=== PATIENT | male | born 1940 | race Caucasian/White ===

== ENCOUNTER 2024-04-29 20:39 | Emergency (ER) | payer MEDICARE ==
[~2024-04-29 20:39] MED LIST: Iopamidol 370 76% 100 ML VIAL ONE
[2024-04-29 21:06] LABS: #Lymphocytes 0.9 thou/uL (1.20-3.40); #Monocytes 0.1 thou/uL (0.11-0.59); #Neutrophils 1.7 thou/uL (1.40-6.50); %Basophils 0.3 % (0.0-1.0); %Lymphocytes 33.8 % (21.0-51.0); %Monocytes 2.2 % (0.0-10.0); %Neutrophils 63.6 % (42.0-75.0); Hematocrit 28.7 % (42.0-52.0); Mean Corpuscular HGB CONC 31.3 g/dL (32.0-36.0); Mean Corpuscular Hemoglobin 31.1 pg (27.0-31.0); Mean Corpuscular Volume 99.1 fl (78.0-98.0); Mean Platelet Volume 15.3 fL (7.4-10.4); Platelet Count 20 10x3/uL (130-400); RBC Distribution Width 16.6 % (11.5-14.5); Red Blood Cell (RBC) Count 2.89 mill/uL (4.70-6.10); White Blood Cell (WBC) Count 2.7 10x3/uL (4.8-10.8)
[2024-04-29 21:16] LABS: ALT (SGPT) 15 U/L (8-55); AST (SGOT) 14 U/L (5-34); Albumin 2.9 g/dL (3.4-4.8); Alkaline Phosphatase 46 U/L (40-110); Anion Gap 13 mmol/L (10-20); BUN (Urea Nitrogen) 17 mg/dL (8.4-25.7); Bilirubin, Total 0.5 mg/dL (0.2-1.2); Calc. Creatinine Clearance 0 mL/min (70-130); Calcium 8.1 mg/dL (7.8-10.44); Carbon Dioxide 24 mmol/L (23-31); Chloride 103 mmol/L (98-107); Estimated GFR 70; Globulin 3.1 g/dL (2.4-3.5); Glucose 139 mg/dL (83-110); Potassium 3.8 mmol/L (3.5-5.1); Sodium 136 mmol/L (136-145)
[2024-04-29 21:17] LABS: Troponin I 0.012 ng/mL (< 0.028)
== END 2024-04-30 02:42 | disposition short-term general hospital (02) ==
LOC: NAV ERS 20:39
DX: I47.10 Supraventricular tachycardia, unspecified (principal); J94.8 Other specified pleural conditions; D61.818 Other pancytopenia; J43.9 Emphysema, unspecified
CPT/HCPCS: 71046; 71260; 80053; 83880; 84484; 85025; 93005; Q9967